=== PATIENT | male | born 1990 | race Caucasian/White ===

== ENCOUNTER 2019-07-02 19:37 | Emergency (ER) | payer SELFPAY ==
--- NOTE | 2019-07-02 21:20 | CT ---
CT HEAD DATE: 07/02/2019 CLINICAL HISTORY: Patient with headache after head trauma. TECHNIQUE: Standard CT scanning of the head was performed. COMPARISON: None. FINDINGS: There is no intracranial hemorrhage. The hicks matter-white matter differentiation is intact. The size of the ventricular system is normal for age. There is no mass effect or midline shift. The calvarium is unremarkable. The orbits are unremarkable. The paranasal sinuses demonstrate a moderate mucous retention cyst in the left maxillary sinus. The mastoid air cells are unremarkable. The soft tissues are unremarkable. IMPRESSION: Normal head CT. Please note that all CT scans at this facility use dose modulation, iterative reconstruction, and/or weight-based dosing when appropriate to reduce radiation dose to as low as reasonably achievable. Dictated by: Patrick Owen MD @ 07/02/2019 21:19:46 (Electronically Signed)
--- NOTE | 2019-07-02 21:38 | EDM.PDOC ---
ED HPI GENERAL MEDICAL PROBLEM - General Chief Complaint: Neurological Problem Stated Complaint: HEAD INJURY Time Seen by Provider: 07/02/19 21:33 - History of Present Illness INITIAL COMMENTS - FREE TEXT/NARRATIVE: HISTORY AND PHYSICAL: History of present illness: The patient is a 29-year-old male who presents with complaints of headache after he fell out of a chair last evening at about 6 PM when it broke. He said that the chair leg broke and he hit his head against the wall and he has had a headache since that time. He did not pass out or black out and has had no nausea or vomiting and no neck or back pain. There is no discrete area on his head that is hurting it started diffuse discomfort and he has no other injuries as a result of these events. Review of systems: As per history of present illness and below otherwise all systems reviewed and negative. Past medical history: As per history of present illness and as reviewed below otherwise noncontributory. Surgical history: As per history of present illness and as reviewed below otherwise noncontributory. Social history: No reported history of drug or alcohol abuse. Family history: As per history of present illness and as reviewed below otherwise noncontributory. Physical exam: General: Well-developed well-nourished morbidly obese man who is nontoxic and vital signs are noted by me. He ambulated into the ED without distress HEENT: Atraumatic, normocephalic, there is no gross area of soft tissue swelling and there is diffuse tenderness of his posterior scalp area without any defects or deformities, pupils reactive, negative for conjunctival pallor or scleral icterus, mucous membranes moist, throat clear, neck supple, nontender , trachea midline. There are no midline step-offs in his defects of the cervical spine Lungs: Clear to auscultation, breath sounds equal bilaterally, chest nontender. Heart: S1S2, regular rate and rhythm no overt murmurs Abdomen: Soft, nondistended, nontender. NABS Pelvis: Deferred Genitourinary: Deferred. Rectal: Deferred. Extremities: Atraumatic, full range of motion without deficit Neurovascular unremarkable. Neuro: Awake, alert, oriented. Cranial nerves II through XII unremarkable. Cerebellum unremarkable. Motor and sensory unremarkable throughout. Exam nonfocal. Diagnostics: CT scan of the head Therapeutics: Patient says he will take Tylenol or ibuprofen at home Impression: Closed head injury Definitive disposition and diagnosis as appropriate pending reevaluation and review of above. Headache Pain Score (Numeric/FACES): 7 - Related Data Allergies Allergy/AdvReac Type Severity Reaction Status Date / Time aspirin Allergy Other Verified 07/02/19 20:05 Home Meds: Home Meds FLUoxetine HCl [Prozac] 20 mg PO DAILY 07/02/19 [History] Lisinopril 20 mg PO DAILY 07/02/19 [History] metFORMIN [Glucophage XR] 500 mg PO BID 07/02/19 [History] Past Medical History Cardiovascular History: Reports: Hypertension Psychiatric History: Reports: Depression Endocrine/Metabolic History: Reports: Diabetes, Type II - Infectious Disease History Infectious Disease History: Reports: Chicken Pox - Past Surgical History HEENT Surgical History: Reports: Oral Surgery Social & Family History - Family History Family Medical History: Noncontributory - Tobacco Use Years of Tobacco use: 12 Packs/Tins Daily: 2 - Caffeine Use Caffeine Use: Reports: Energy Drinks, Soda - Recreational Drug Use Recreational Drug Use: No ED ROS GENERAL - Review of Systems Review Of Systems: ROS reveals no pertinent complaints other than HPI. ED EXAM, GENERAL - Physical Exam Exam: See Below (See dictation) Course - Vital Signs Last Recorded V/S: Last Vital Signs Temp 36.1 C 07/02/19 20:07 Pulse 88 07/02/19 20:07 Resp 20 07/02/19 20:07 BP 124/91 H 07/02/19 20:07 Pulse Ox 97 07/02/19 20:07 Departure - Departure Time of Disposition: 21:40 Disposition: Home, Self-Care 01 Condition: Good Clinical Impression: Closed head injury Qualifiers: Encounter type: initial encounter Qualified Code(s): S09.90XA - Unspecified injury of head, initial encounter - Discharge Information Referrals: PCP,Not In Area [Primary Care Provider] - Forms: ED Department Discharge Additional Instructions: The following information is given to patients seen in the emergency department who are being discharged to home. This information is to outline your options for follow-up care. We provide all patients seen in our emergency department with a follow-up referral. The need for follow-up, as well as the timing and circumstances, are variable depending upon the specifics of your emergency department visit. If you don't have a primary care physician on staff, we will provide you with a referral. We always advise you to contact your personal physician following an emergency department visit to inform them of the circumstance of the visit and for follow-up with them and/or the need for any referrals to a consulting specialist. The emergency department will also refer you to a specialist when appropriate. This referral assures that you have the opportunity for followup care with a specialist. All of these measure are taken in an effort to provide you with optimal care, which includes your followup. Under all circumstances we always encourage you to contact your private physician who remains a resource for coordinating your care. When calling for followup care, please make the office aware that this follow-up is from your recent emergency room visit. If for any reason you are refused follow-up, please contact the [facility] emergency department at and ask to speak to the emergency department charge nurse. [facility] Primary care- Internal Medicine and Family [address] [address] Use ice to areas of pain and swelling and use [id number] Tylenol or ibuprofen for pain management. Continue to monitor your symptoms and schedule follow-up in the clinic with your provider or one of hours as needed next week. Return to ER as needed and as discussed
== END 2019-07-02 21:52 | disposition home or self-care (01) ==
LOC: MW.ED 19:37
DX: S09.90XA Unspecified injury of head, initial encounter (principal); I10 Essential (primary) hypertension; E11.9 Type 2 diabetes mellitus without complications; F32.9 Major depressive disorder, single episode, unspecified; F17.210 Nicotine dependence, cigarettes, uncomplicated; Z79.84 Long term (current) use of oral hypoglycemic drugs; Z79.899 Other long term (current) drug therapy; Z88.6 Allergy status to analgesic agent; W07.XXXA Fall from chair, initial encounter; W22.01XA Walked into wall, initial encounter
CPT/HCPCS: 70450; 70450-26; 99283; 99283-25